=== PATIENT | female | born 1945 | race Caucasian/White ===

== ENCOUNTER → 2016-09-21 | Outpatient (CLI) | payer BC ==
[~2016-09-21] MED LIST: ASCA500 PO; ASPI81TA28 PO; CHOLCAP5 PO; CLC100 PO; DULO60CA44 PO; ESOM20CA PO; GLC/500 PO; IBAN150T PO; LEVO125T4 PO; LIVALO PO; LVNIS30 SQ; OMEG10007 PO; PRMVC TOP; ULT50X PO
== END | disposition home or self-care (01) ==
LOC: C.RDSM 10:11
PROVIDERS: ATTEND Physical Medicine & Rehabilitation Sports Medicine
DX: M25.561 Pain in right knee (principal)

== ENCOUNTER → 2017-01-03 | Outpatient (CLI) | payer BC ==
[~2017-01-03] MED LIST changes: -LEVO125T4 PO; +LEVO125T5 PO
--- NOTE | 2017-01-03 11:46 | DIAGNOSTIC IMAGING REPORT ---
RIGHT KNEE MRI HISTORY: RIGHT KNEE PAIN COMPARISON STUDY: Right knee 09/21/2016. TECHNIQUE: Multiplanar multisequence MRI of the right knee was performed according to standard department protocol without the use of contrast. FINDINGS: Menisci: The lateral meniscus is intact. Oblique tear at the junction of the body and posterior horn of the medial meniscus extending into the posterior horn. Ligaments: The anterior and posterior cruciate ligaments are intact. The medial and lateral collateral ligaments are intact. Tiny cyst deep to the MCL consistent with an MCL bursitis. Mild edema surrounding the MCL. Extensor mechanism: The quadriceps tendon and patellar ligament are intact. Articular cartilage and bone: No fracture or dislocation. Tricompartmental marginal osteophytes. Full-thickness cartilage loss seen within the medial patellar facet and median ridge of the patella. There is mild to moderate cartilage thinning within the lateral patellar facet. Full-thickness cartilage loss seen within the central weightbearing portion of the medial femoral condyle. Mild post thinning within the lateral compartment of the knee. Joint effusion: Moderate. Soft tissues: Small multiloculated cyst medial to the proximal tibia consistent with a semimembranosus-tibial collateral bursitis. IMPRESSION: 1. Medial meniscus tears as described above. 2. Moderate joint effusion. 3. Tiny cyst deep to the MCL consistent with an MCL bursitis. There is also small cystic focus medial to the proximal tibia consistent with a semimembranosus-tibial collateral bursitis. 4. Tricompartmental osteoarthritis as described above. Electronically signed by: Ran Quezada M.D. 01/03/2017 11:44 AM Dictated Date/Time: 01/03/2017 11:37 AM
== END | disposition home or self-care (01) ==
LOC: C.MRI 10:13
PROVIDERS: ATTEND Physical Medicine & Rehabilitation Sports Medicine
DX: Z96.652 Presence of left artificial knee joint (principal); S83.241A Other tear of medial meniscus, current injury, right knee, initial encounter; M25.461 Effusion, right knee; M17.11 Unilateral primary osteoarthritis, right knee; R93.7 Abnormal findings on diagnostic imaging of other parts of musculoskeletal system

== ENCOUNTER → 2017-03-03 | Day surgery (SDC) | payer BC ==
[2017-02-02 09:21] VITALS: Ht 158.8 cm; Wt 65.0 kg
[~2017-03-03] VITALS: Ht 158.8 cm; Wt 65.0 kg
[~2017-03-03] MED LIST changes: +ATROPINE SULFATE 0.1 MG/ML 5ML SYR IV PRN; +CEFAZOLIN 1000MG IV PUSH 5 ML IV SCH; -CLC100 PO; +DEXAMETHASONE SOD INJ 4 MG/ML VIAL ONE; +EpHEDrine SULFATE INJ 50 MG/ML AMP IV PRN; +FENTANYL CITRATE INJ 50 MCG/1 ML 2 ML VIAL IV PRN; +FENTANYL CITRATE INJ 50 MCG/1 ML 2 ML VIAL ONE; +KETOROLAC TROMETHAMINE 30 MG/ML VIAL ONE; +LACTATED RINGER'S 1000ML 1,000 ML IV SCH; +LIDOCAINE HCL 2% 2 ML VIAL (20MG/ML) ONE; +LIDOCAINE/EPINEPHRINE 1% 20 ML VIAL ONE; -LVNIS30 SQ; +MIDAZOLAM HCL 1 MG/ML 2ML VIAL ONE; +MoRPHine SULFATE 2 MG/ML CARP IV PRN; +MoRPHine SULFATE 4 MG/ML 1 ML CARP\\VIAL IV PRN; +ONDANSETRON INJ 2 MG/ML 2 ML VIAL IV PRN; +ONDANSETRON INJ 2 MG/ML 2 ML VIAL ONE; +OXYCODONE/ACETAMINOPHEN 5-325 TAB PO PRN; +PROPOFOL IV EMULSION 10 MG/ML 20 ML VIAL IV ONE; +SODIUM CHLORIDE 0.9% 1000ML 1,000 ML IV SCH; -ULT50X PO
--- NOTE | 2017-03-03 06:48 | History & Physical Bridge Note ---
H&P Re-Evaluation Bridge Note: I have examined the patient, reviewed the History & Physical and in the interval since the performance of the History & Physical I have noted the following changes of clinical significance: No changes noted
--- NOTE | 2017-03-03 08:13 | Discharge Instructions-SurgCtr ---
Discharge Instructions Date of Service Mar 03, 2017. Visit Reason for Visit: Right Knee Medial Meniscus Tear Discharge Discharge Diagnosis / Problem: Right knee osteoarthritis with medial menicus tear Discharge Goals Goal(s): Decrease discomfort, Improve function, Increase independence Medications Stopped Medications Name(s): METFORMINSTOPPED.[id number]/28 Restart Stopped Medication(s): metformin Start Aspirin 325 mg daily this evening Activity Recommendations Activity Limitations: per Instructions/Follow-up section Exercise/Sports Limitations: none Shower/Bathe: may shower/bathe in 3 days Driving or Machine Use: no driving until instucted by surgeon Anesthesia . Post Anesthesia Instructions: If you have had General Anesthesia or IV Sedation: * Do not drive today. * Resume driving when surgeon permits. * Do not make important decisions or sign legal documents today. * Call surgeon for: 1. Temperature elevations greater than 101 degrees F. 2. Uncontrollable pain. 3. Excessive bleeding. 4. Persistent nausea and vomiting. 5. Medication intolerance (nausea, vomiting or rash). * For nausea and vomiting use only clear liquids such as: tea, soda, bouillon until nausea subsides, then gradually increase diet as tolerated. * If you have any concerns or questions, call your surgeon's office. If physician is unavailable and it is an emergency, call 911 or go to the nearest emergency room. . Diet Recommendations Home Diet: resume previous diet Procedures Procedures Performed: Right knee arthroscopy with partial medial menisectomy Pending Studies Studies pending at discharge: no Medical Emergencies . Who to Call and When: Medical Emergencies: If at any time you feel your situation is an emergency, please call 911 immediately. . Non-Emergent Contact Non-Emergency issues call your: Primary Care Provider Call Non-Emergent contact if: you have a fever, temperature is above 101, your pain is not controlled, your pain is worsening, wound has increased drainage, wound has increased redness . . "Provider Documentation" section prepared by Bharat Ulrich. . [place] Drug Monitoring Program Search Results: no issues identified
--- NOTE | 2017-03-03 09:44 | [facility] Post Operative Brief Note ---
Immediate Operative Summary Operative Date Mar 03, 2017. Pre-Operative Diagnosis Right knee medial meniscus tear, chondrosis Post-Operative Diagnosis Same as pre-op Procedure(s) Performed Right Knee Arthroscopy Partial Medial Meniscectomy and Chondroplasty Surgeon Proposal Specialist Surgeon(s) Estimated Blood Loss 5ml Findings chondrosis patella lateral femoral condyle and medial compartment Specimens none Anesthesia LMA Complication(s) None Disposition Recovery Room / PACU
[2017-03-03 10:53] VITALS: TEMP 37.1
--- NOTE | 2017-03-03 11:01 | OPERATIVE REPORT ---
DATE OF OPERATION: 03/03/2017 PREOPERATIVE DIAGNOSES: Right knee medial meniscus tear and chondrosis. POSTOPERATIVE DIAGNOSES: Complex tear of the medial meniscus of the right knee, chondromalacia of the patella, trochlea, lateral condyle, medial femoral condyle, and tibial plateau. PROCEDURES: Right knee arthroscopy, partial medial meniscectomy and chondroplasty of the patella, lateral condyle, trochlea, medial femoral condyle, and tibial plateau. SURGEON: Dr. Darinel Salinas. HRIS DEVELOPER: Bharat Ulrich, fellow. No PA available. ANESTHESIA: Laryngeal mask. INDICATIONS FOR PROCEDURE: The patient is a 71-year-old female who has right knee pain refractory to nonsurgical methods of management. She does have some mild arthritis in the knee along with a complex tear of the meniscus. After discussion of her treatment options, she elected to proceed with operative intervention after failure of conservative treatment methods. PROCEDURE IN DETAIL: Informed consent was obtained. The patient was identified as Naina Duran. She identified the operative site as the right knee. I marked it with my initials. A preoperative surgical timeout was performed. A preop dose of IV antibiotics was given. She was taken to the operating room, positioned supine on the operating room table and a laryngeal mask anesthetic was administered. She was positioned supine. A lateral post used for stressing the knee. The leg was prepped and draped in usual sterile fashion. No tourniquet was utilized. DVT prophylaxis intraoperatively with foot pumps postoperatively with early mobility and aspirin. The exam under anesthesia revealed a moderate right knee effusion, a trace bit of varus alignment, range of motion from 0-130 degrees of flexion. Cruciate and collateral stability was intact; 1% lidocaine with epinephrine was injected into the knee joint, fat pad and portal sites preoperatively. The procedure began by establishing an inferolateral viewing portal, a superolateral outflow portal, and an inferomedial working portal. Diagnostic arthroscopy was performed. There was some generalized synovitis throughout the knee, which was debrided as encountered. There was some chondral debris, mostly adhered to the synovium present throughout the knee, but no notable substantial loose bodies. There was grade 1 and 2 and perhaps some grade 3 chondrosis of the patella. This was diffusely more towards the distal and medial facet, chondroplasty performed. There were grade 1 and 2 changes diffusely about the trochlea, which was also debrided. The medial and lateral gutters were unremarkable except for the presence of small osteophytes. The lateral compartment showed grade 1 softening on the lateral tibial spine, which was debrided with a shaver. The meniscus was intact and stable to probing. I could not gain access to the posterolateral compartment. The femoral condyle was normal except for an area of grade 2 and 3 chondrosis, 1 cm in diameter weightbearing area. There were numerous unstable cartilaginous flaps, which were debrided with perhaps a small area several millimeters in size where there was essentially no cartilage. The retropatellar fat pad was resected. The cruciate ligaments were normal in appearance. The medial compartment showed an area on the anterior tibial plateau, where there was no cartilage. This was 0.5 x 1 cm. The anterior horn of the meniscus was normal. There was a complex tear of the body and posterior horn. There was a fragment of meniscus flipped up into the back of the knee. Basket forceps and a shaver were utilized to debride this meniscus back to a stable, balanced and contoured rim. The MCL was perforated to improve visualization in a percutaneous fashion. There was diffuse grade 2 and 3 chondrosis of the femoral condyle over the entire weightbearing area, which was debrided with the shaver. The posteromedial compartment showed some evidence of the meniscus tear, but no unstable fragments. There was a synovialized loose body posteromedially, which I left in situ. The shaver was run through the knee to crop picker loose debris. The portals were closed with 4-0 nylon. Perhaps, half of the back of the meniscus was removed. The leg was cleaned with wet and dry sponges. A soft sterile dressing was applied along with a DARLING hose. She was awakened from anesthesia without difficulty and taken to the recovery room in stable condition. There were no specimens or complications. Counts were correct at the end of case. Blood loss was minimal. At the conclusion of the operation, I spoke to patient's and informed him of my findings. Detailed postoperative instructions were given. She will be rehabilitated according to the arthroscopic partial meniscectomy protocol. She may have early weightbearing. She will start her aspirin tonight. She will begin early next week for PT. She may weightbear as tolerated. I attest to the content of the Intraoperative Record and any orders documented therein. Any exception s are noted below.
[2017-03-03 11:25] VITALS: O2SAT 98
[2017-03-03 11:42] VITALS: BP 173/81; PULSE 82
--- NOTE | 2017-03-03 11:44 | Anesthesia Progress Nt - [facility] ---
Anesthesia Post Op Note Date & Time Mar 03, 2017 at 11:44 Vital Signs Pain Intensity: 2 Vital Signs Past 12 Hours Date Time Temp Pulse Resp B/P (MAP) Pulse Ox O2 Delivery O2 Flow Rate FiO2 03/03/17 11:42 82 173/81 (111) 03/03/17 11:25 82 16 175/83 (113) 98 Room Air 03/03/17 10:53 37.1 90 16 178/80 (112) 94 Room Air 03/03/17 10:51 83 15 95 03/03/17 10:51 85 15 03/03/17 10:50 165/74 03/03/17 10:49 151/93 03/03/17 10:46 84 20 95 03/03/17 10:46 83 20 03/03/17 10:45 182/71 03/03/17 10:43 86 20 95 03/03/17 10:43 86 20 03/03/17 10:42 36.6 85 16 182/71 95 Room Air 03/03/17 10:40 163/75 03/03/17 10:38 87 14 93 03/03/17 10:38 86 14 03/03/17 10:36 172/64 03/03/17 10:35 181/67 03/03/17 10:33 86 16 03/03/17 10:33 86 16 96 03/03/17 10:30 159/85 03/03/17 10:28 84 12 03/03/17 10:28 84 12 100 03/03/17 10:25 174/86 03/03/17 10:23 85 15 180/79 100 03/03/17 10:23 85 15 03/03/17 10:20 186/64 03/03/17 10:18 84 15 100 03/03/17 10:18 84 15 03/03/17 10:15 176/72 03/03/17 10:13 81 14 99 03/03/17 10:13 81 14 03/03/17 10:10 180/93 03/03/17 10:10 188/80 03/03/17 10:08 83 14 98 03/03/17 10:08 84 14 03/03/17 10:06 184/67 03/03/17 10:03 85 14 99 03/03/17 10:03 85 14 03/03/17 10:02 159/77 1/11/18 10:00 199/80 03/03/17 09:59 182/92 03/03/17 09:58 37.1 78 16 159/77 98 Mask 6 03/03/17 09:58 87 17 190/112 96 03/03/17 09:58 88 17 03/03/17 07:09 36.6 84 16 146/82 (103) 98 Room Air Notes Mental Status: alert / awake / arousable, participated in evaluation Pt Amnestic to Procedure: Yes Nausea / Vomiting: adequately controlled Pain: adequately controlled Airway Patency, RR, SpO2: stable & adequate BP & HR: stable & adequate Hydration State: stable & adequate Anesthetic Complications: no major complications apparent
== END | disposition home or self-care (01) ==
LOC: X.SURG 06:42
PROVIDERS: ATTEND Physical Medicine & Rehabilitation Sports Medicine
DX: S83.231A Complex tear of medial meniscus, current injury, right knee, initial encounter (principal); M22.41 Chondromalacia patellae, right knee; M94.261 Chondromalacia, right knee; M17.11 Unilateral primary osteoarthritis, right knee; X50.0XXA Overexertion from strenuous movement or load, initial encounter; Y92.832 Beach as the place of occurrence of the external cause; E11.9 Type 2 diabetes mellitus without complications; E03.9 Hypothyroidism, unspecified; E78.5 Hyperlipidemia, unspecified; K21.9 Gastro-esophageal reflux disease without esophagitis; N32.81 Overactive bladder; M81.0 Age-related osteoporosis without current pathological fracture; Z96.652 Presence of left artificial knee joint; Z79.84 Long term (current) use of oral hypoglycemic drugs; Z79.899 Other long term (current) drug therapy

== ENCOUNTER 2018-12-12 06:03 | Inpatient (IN) ==
--- NOTE | 2018-11-09 15:15 | PAT Medication Instructions ---
Medication Instructions Date of Service November 09, 2018 Home Medications Levothyroxine 1 dose PO QAM ascorbic acid (vitamin C) [Vitamin C] 500 mg PO DAILY aspirin [Aspir-81] 81 mg PO DAILY calcium carbonate [Calcium 600] 600 mg PO DAILY celecoxib [Celebrex] 200 mg PO BID cholecalciferol (vitamin D3) [Vitamin D3] 5,000 unit PO 3XWK conjugated estrogens [Premarin] 0.625 mg VAGINAL 3XWK duloxetine [Cymbalta] 60 mg PO QPM esomeprazole magnesium [Nexium] 20 mg PO QAM ibandronate [Boniva] 150 mg PO MONTHLY losartan 100 mg PO QAM metformin 500 mg PO BID omega 7-scg-twk-fish oil [Fish Oil] 1 cap PO DAILY ASK your surgeon for instructions celecoxib [Celebrex] 200 mg PO BID ASK your prescriber and surgeon conjugated estrogens [Premarin] 0.625 mg VAGINAL 3XWK ibandronate [Boniva] 150 mg PO MONTHLY STOP taking 2 weeks before surgery (or as soon as possible if surgery is within 2 weeks) omega 6-mat-pdv-fish oil [Fish Oil] 1 cap PO DAILY DO NOT take the morning of surgery ascorbic acid (vitamin C) [Vitamin C] 500 mg PO DAILY calcium carbonate [Calcium 600] 600 mg PO DAILY cholecalciferol (vitamin D3) [Vitamin D3] 5,000 unit PO 3XWK losartan 100 mg PO QAM metformin 500 mg PO BID Take morning of surgery With a small sip of water, OTHERWISE NOTHING TO EAT OR DRINK AFTER MIDNIGHT: Levothyroxine 1 dose PO QAM aspirin [Aspir-81] 81 mg PO DAILY esomeprazole magnesium [Nexium] 20 mg PO QAM Take evening before surgery duloxetine [Cymbalta] 60 mg PO QPM metformin 500 mg PO BID Other Notes If you have any questions please call us at [phone] or [phone] or [phone] or [phone]
--- NOTE | 2018-11-13 11:36 | Anesthesiology Consultation ---
Date of Service November 13, 2018 Assessment & Plan (1) Encounter for pre-operative examination: - Awaiting review preop testing (labs, EKG, CXR). - Awaiting surgeon-ordered PCP clearance scheduled 11/2018 (Dr. Turner). - Check [facility] AM DOS Chart Review Chart Review: Patient seen in Pre Admission Testing Teaching & Discussion Pre-Anesthesia Teaching/Discussion Notes: Instructed NPO after midnight before surgery,except medications with 15 cc of water. Medication instructions provided according to the PAT guidelines. History Surgery Operation Date: 12/12/18 07:00 Proposed Procedures p Right Total Knee Arthroplasty - Darinel Salinas MD Height/Weight Height: 5 ft 2 in Weight: 67.4 kg Allergies Allergy/AdvReac Type Severity Reaction Status Date / Time sulfamethoxazole AdvReac Severe GASTRITITS Verified 11/06/18 11:46 [From Bactrim] trimethoprim [From Bactrim] AdvReac Severe GASTRITITS Verified 11/06/18 11:46 Medications Home Medications Medication Instructions Recorded Confirmed Last Taken Levothyroxine 1 dose PO QAM 11/06/18 11/06/18 11/06/18 ascorbic acid (vitamin C) [Vitamin 500 mg PO DAILY 11/06/18 11/06/18 Unknown C] aspirin [Aspir-81] 81 mg PO DAILY 11/06/18 11/06/18 Unknown calcium carbonate [Calcium 600] 600 mg PO DAILY 11/06/18 11/06/18 Unknown celecoxib [Celebrex] 200 mg PO BID 11/06/18 11/06/18 11/06/18 cholecalciferol (vitamin D3) 5,000 unit PO 3XWK 11/06/18 11/06/18 Unknown [Vitamin D3] conjugated estrogens [Premarin] 0.625 mg VAGINAL 3XWK 11/06/18 11/06/18 Unknown duloxetine [Cymbalta] 60 mg PO QPM 11/06/18 11/06/18 11/05/18 esomeprazole magnesium [Nexium] 20 mg PO QAM 11/06/18 11/06/18 11/06/18 ibandronate [Boniva] 150 mg PO MONTHLY 11/06/18 11/06/18 Unknown losartan 100 mg PO QAM 11/06/18 11/06/18 11/06/18 metformin 500 mg PO BID 0911/06/18 11/06/18 omega 2-thk-ken-fish oil [Fish Oil] 1 cap PO DAILY 11/06/18 11/06/18 Unknown Past Medical History Medical History Acid reflux controlled History of thyroid storm remote hx years ago s/p influenza- PCP monitoring thyroid levels/levothyroxine dose Hypertension Hypothyroidism Osteoarthritis Osteopenia Type 2 diabetes mellitus NIDDM Exercise / Class Metabolic Activity II 4-5 Yardwork/Stairs/Walk up hill Past Family History Family History Sister Family history of colon cancer Past Surgical History Surgical History History of arthroscopy of right knee Right knee arthroscopy, PMM: 03/03/17: [place] [facility] [place] of colonoscopy History of hysterectomy History of microdiscectomy lumbar History of total left knee replacement Past Anesthesia History No Hx of Anesthesia Complications and No Family Hx of Anesthesia Complications History of PONV No Hx of PONV and No Hx of Motion Sickness Social History Smoking Status: Never smoker Do You Dip or Chew Tobacco: No Hx Alcohol Use: Yes Alcohol type: wine alcohol intake frequency: holidays/special occasions only Hx Substance Use: No substance use type: does not use Review of Systems Reflux controlled. Patient denies chest pain, shortness of breath, dyspnea on exertion, cough, wheezing, palpitations. Physical Exam Vital Signs VITALS BP 134/75 P 73 TEMP 98.7 SP02 97%RA RESP 16 PHYSICAL Full neck and c-spine range of motion. Full TMJ range of motion. TMD 2.5 finger breaths Mallampati Score 3 Dentition: crown to be placed on recent root canal prior to surgery (early 11/2018)- surgeon made aware Lungs: clear throughout to auscultation Cardiac: regular rate and rhythm, no murmurs noted Spine: normal Carotid arteries: negative bruit Extremities: no edema
[2018-11-13 12:56] LABS: Partial Thromboplastin Ratio 0.9
--- NOTE | 2018-11-13 12:58 | XRay Report ---
XR chest Pre-admission PA/Lat CLINICAL HISTORY: Preoperative evaluation. COMPARISON STUDY: Chest radiograph December 03, 2015. FINDINGS: Lung volumes are normal. Lungs are clear. There is no pneumothorax or pleural effusion. Car diac size is normal. Mediastinal contours are normal. There is no evidence for pulmonary edema. IMPRESSION: No acute cardiopulmonary findings. Electronically signed by: Dionicio Powers M.D. 11/13/2018 12:56 PM
[2018-11-13 13:51] LABS: Estimated Average Glucose 143 mg/dl; Hemoglobin A1C 6.6 % (4.5-5.6)
[~2018-12-12 06:03] MED LIST changes: +ACETAMINOPHEN 500 MG TAB PO SCH; -ASCA500 PO; -ASPI81TA28 PO; -ATROPINE SULFATE 0.1 MG/ML 5ML SYR IV PRN; -CEFAZOLIN 1000MG IV PUSH 5 ML IV SCH; +CEFAZOLIN 2000MG 2,000 MG/15 ML SYR IV SCH; -CHOLCAP5 PO; +CeleBREX 200 MG CAP PO SCH; -DEXAMETHASONE SOD INJ 4 MG/ML VIAL ONE; -DULO60CA44 PO; -ESOM20CA PO; -EpHEDrine SULFATE INJ 50 MG/ML AMP IV PRN; -FENTANYL CITRATE INJ 50 MCG/1 ML 2 ML VIAL IV PRN; -FENTANYL CITRATE INJ 50 MCG/1 ML 2 ML VIAL ONE; +GABAPENTIN 300 MG CAP PO SCH; -GLC/500 PO; -IBAN150T PO; -KETOROLAC TROMETHAMINE 30 MG/ML VIAL ONE; -LACTATED RINGER'S 1000ML 1,000 ML IV SCH; -LEVO125T5 PO; -LIDOCAINE HCL 2% 2 ML VIAL (20MG/ML) ONE; -LIDOCAINE/EPINEPHRINE 1% 20 ML VIAL ONE; -LIVALO PO; +LR 500ML BOLUS, THEN 15ML/HR IV SCH; +LR 60ML/HR IV SCH; +METOCLOPRAMIDE HCL 10 MG TABLET PO SCH; -MIDAZOLAM HCL 1 MG/ML 2ML VIAL ONE; -MoRPHine SULFATE 2 MG/ML CARP IV PRN; -MoRPHine SULFATE 4 MG/ML 1 ML CARP\\VIAL IV PRN; -OMEG10007 PO; -ONDANSETRON INJ 2 MG/ML 2 ML VIAL IV PRN; -ONDANSETRON INJ 2 MG/ML 2 ML VIAL ONE; +OXYCODONE HCL 10 MG TABCR (OXYCONTIN) PO SCH; -OXYCODONE/ACETAMINOPHEN 5-325 TAB PO PRN; -PRMVC TOP; -PROPOFOL IV EMULSION 10 MG/ML 20 ML VIAL IV ONE; +ROPIVACAINE 0.5% HCL/PF 150 MG, BUPIVACAINE 0.5% MPF 30 ML, EPINEPHrine 0.15 MG, Ketoro... INFIL SCH; -SODIUM CHLORIDE 0.9% 1000ML 1,000 ML IV SCH; +TRAMADOL HCL 50 MG TABLET PO SCH; +TRANEXAMIC ACID 1,000 MG **IV Pre-op IV SCH; +cloNIDine HCL 0.1 MG/24 HR TRANSDERM SYS TD SCH
[2018-12-12] MEDS ORDERED: BUPIVACAINE 0.25% 30 ML VIAL ONE (06:27)
[2018-12-12] MEDS ORDERED: BUPIVACAINE 0.5 % 5 MG/1 ML PF 10ML VIAL ONE (06:27)
[2018-12-12] MEDS ORDERED: TRANEXAMIC ACID 1,000 MG **IV Intra-op IV SCH (06:30)
--- NOTE | 2018-12-12 06:45 | History & Physical Bridge Note ---
Date of Service December 12, 2018 History & Physical Bridge Note I have examined the patient, reviewed the History & Physical and in the interval since the performance of the History & Physical I have noted the following changes of clinical significance: no changes noted
[2018-12-12] MEDS ORDERED: LIDOCAINE HCL 2% 2 ML VIAL/AMP(20MG/ML) INFIL ONE (06:47)
[2018-12-12] MEDS ORDERED: PROPOFOL IV EMULSION 10 MG/ML 20 ML VIAL IV ONE ×2 (06:47→10:01)
[2018-12-12] MEDS ORDERED: ONDANSETRON INJ 2 MG/ML 2 ML VIAL ONE (06:47)
[2018-12-12] MEDS ORDERED: MIDAZOLAM HCL 1 MG/ML 2ML VIAL ONE ×2 (06:48→09:03)
[2018-12-12] MEDS ORDERED: fentaNYL citrate 100 MCG/2 ML VIAL ONE (06:48)
[2018-12-12] MEDS ORDERED: FAMOTIDINE 20 MG TAB ONE (07:09)
[2018-12-12] MEDS ORDERED: BACITRACIN INJ 50,000 UNIT VIAL ONE (07:12)
[2018-12-12] MEDS ORDERED: ORTHO JOINT ANESTHETIC ONE (07:12)
[2018-12-12] MEDS ORDERED: VANCOMYCIN HCL 1000MG/20ML VIAL ONE (07:28)
[2018-12-12] MEDS ORDERED: ePHEDrine sulfate 50 MG/ML AMP IV PRN (08:23)
[2018-12-12] MEDS ORDERED: ONDANSETRON INJ 2 MG/ML 2 ML VIAL IV PRN ×2 (08:23→12:27)
[2018-12-12] MEDS ORDERED: ATROPINE SULFATE 0.1 MG/ML 10ML SYR IV PRN (08:23)
[2018-12-12] MEDS ORDERED: fentaNYL citrate 100 MCG/2 ML VIAL IV PRN (08:23)
--- NOTE | 2018-12-12 11:15 | Operative Report ---
Post Operative Report Pre & Post Diagnosis Operation Date: 12/12/18 08:20 Pre-Op Diagnosis: Right Knee Osteoarthritis Post-Op Diagnosis: Right Knee Osteoarthritis I identified the patient and participated in the time-out.: Yes Procedure Operation Date: 12/12/18 08:20 Actual Procedures p Right Total Knee Arthroplasty(Right) - Darinel Salinas MD Surgeon Darinel Salinas MD Hand Stapler Wanda Osuna Estimated Blood Loss 5 Findings Consistent with Post-Op Diagnosis Specimens Bone and soft tissue Drains None Anesthesia Type MAC Spinal Regional Complications none Disposition Accompanied Patient To Recovery: No Disposition: Recovery Room Indications Patient 72 years old. She has end-stage arthritis of her right knee. This is refractory to nonsurgical methods of management and she is elected to proceed with knee replacement. She is status post a successful replacement of her left knee. Description of Procedure Informed consent obtained. Patient identified. She identified the operative site which I marked with my initials. Preop surgical timeout was performed and a preop dose of IV antibiotics was given. She was positioned supine on the OR table with a bump under her right hip and a padded post under her right calf. A tourniquet was applied to the right thigh and the leg was then prepped and draped in usual sterile fashion. DVT prophylaxis with foot pumps and postoperatively Lovenox and early mobility. The exam under anesthesia revealed range of motion 0/2/130. She had a fixed varus deformity. Limb exsanguinated with the Esmarch. Tourniquet inflated 250 mmHg. Midline longitudinal incision was made followed by medial parapatellar arthrotomy. There was scarring from prior surgery which was excised as encountered in the lateral gutter suprapatellar pouch and retropatellar fat pad. The patella was scarred in and the retropatellar fat pad was resected and the synovial reflection in the lateral gutter was released. Soft tissue on the anterior aspect the distal femur was excised and an extensile medial release was performed off the tibia. The patella was everted and marginal osteophytes were removed. There were grade 3 and 4 changes diffusely at the patella. The knee was flexed and the cruciate ligaments were resected. The tibia was sucked subluxated and a marine pilot hole was drilled into the proximal tibia just in front of the lateral tibial spine. Intramedullary alignment guide was inserted and the 0 degrees slope cutting block was set to cut 8 mm off of the high side corresponding to about 4 mm medially. [place] was perfect. The extra medullary alignment elisabeth was utilized to check slope and alignment which bisected the ankle joint and intersecting the second ray being in line with the medial third of the tibial tubercle which was previously marked. This cut was made and the tibia was sized to a 2.5. A marine pilot hole was drilled into the distal femur followed by insertion of the distal femoral cutting guide set at 12 mm thickness 6 degrees valgus based upon preop templating and prior surgery. This cut was made and the extension gap was a slightly asymmetric but tight 8. I did more medial releasing which corrected the asymmetry however it remained tight. I then went back and resected 2 more millimeters off of the tibia and downsized to a 2. This made us have a symmetric extension gap. The trans-epicondylar axis was marked out. The distal femoral sizing guide was applied and sized with 2.5. External rotation holes were drilled which approximated the epicondylar axis. The size 2.5 anterior down cutting block was applied. Collateral ligaments protected and the cuts were made. Box cutting guide was applied and lateralized box cut made. The flexion gap was an asymmetric 8 medially 10 lateral. I then went ahead and resect the uncapped medial bone after doing some more medial and posterior medial releases to no avail. Resecting the uncapped medial bone after shifting the tibial component laterally resulted in a symmetric flexion gap of 10 mm. This effectively lengthens the MCL. The femoral trial was applied. The keel an d posterior prepared for the tibia and trialing was performed showing full extension trace LCL laxity in the position and no laxity at 90. The patella was everted and measured to 19. The guide was set to preserve 13 mm of bone and the cut was made preserving 13. The 32 mm paddle was applied and aligned and the lug holes drilled. The patella was distal lysed and medialized. Patella tracked fine with a no hands technique. Some cartilage on the lateral surface of the patella was removed to improve for cement penetration. Drill holes were made into the patella and proximal tibia. The canals were plugged and copious lavage to prepare the bony surfaces was performed and this was preceded by Betadine lavage. Ortho joint mix was injected into the back of the knee. 4 g of vancomycin were cauterized. They were mixed in with the cement powder thoroughly. The cement was then mixed 4-minute 10 and while in a doughy state the components were cemented in place. Femur tibia patella. The knee was helpful extension until the cement hardened. Tourniquet let down at 90 minutes and meticulous hemostasis was performed. There was some bleeding from the proximal tibia bone holes which was plugged with bone wax. Otherwise meticulous hemostasis with electrocautery was performed. Soft tissues were kept moist throughout the procedure and irrigation with saline again was performed. The a forementioned laxity profile held true and the final polyethylene insert was inserted. Prior to inserting the components small posterior osteophytes were removed in the back the knee was explored. After cementing several small pieces of cement in the back of the knee were removed. The extensor mechanism was closed with interrupted #2 FiberWire above the equator the patella and running and interrupted #1 Vicryl below. The skin was closed in layers with 0 and 2-0 Vicryl followed by ewelina. A soft sterile dressing was applied Xeroform 4 x 4's ABD full-length João wrap with knee immobilizer. Patient was then awakened from anesthesia without difficulty and taken to the recovery room in stable condition. There were no complications. Blood loss 5 cc. TXA was given before and after the case. Resected bone and soft tissue was sent for specimen. The lateral compartment looked pretty normal with an intact meniscus. The medial meniscus was surgically partially deficient and there were grade 4 changes involving the medial tibia and femur with large osteophytes which were removed including underneath the MCL. Counts were correct. At the conclusion the operation spoke patient's family informed of my findings. Postoperative instructions were given. Composite patellar thickness was 20 mm. Largo assisted flexion was 125. Knee was fully straight and neutrally aligned. Components inserted with a J[employer] PFC Sigma rotating platform knee. A size 32 over the patella size 10 mm thick posterior stabilized polyethylene which was inserted at the end of the case. A size 2 5 right posterior stabilized femur and a size 2 mobile-bearing keel tibial tray. I attest to the content of the Intraoperative Record and any orders documented therein. Any exceptions are noted below.
--- NOTE | 2018-12-12 11:25 | Operative Report ---
Post Operative Report Pre & Post Diagnosis Operation Date: 12/12/18 08:20 Pre-Op Diagnosis: Right Knee Osteoarthritis Post-Op Diagnosis: Right Knee Osteoarthritis I identified the patient and participated in the time-out.: Yes Procedure Operation Date: 12/12/18 08:20 Actual Procedures p Right Total Knee Arthroplasty(Right) - Darinel Salinas MD Surgeon Darinel Salinas M.D. Audio Visual Facilities Engineer Wanda Osuna PA-C Estimated Blood Loss 5 Findings Consistent with Post-Op Diagnosis Specimens bone and soft tissue Anesthesia Type MAC Spinal Regional Complications none Description of Procedure Patient was taken to the operating room, placed under spinal anesthesia, with peripheral nerve block. Time out performed, prepped and draped in routine sterile fashion. I was present during the entire case and assisted with positioning, prepping, draping, exposure, retraction, implantation of the hardware, closure and dressings. Please see Dr. Salinas's operative report for further detail. Patient was awakened and taken to the recovery room in stable condition. I attest to the content of the Intraoperative Record and any orders documented therein. Any exceptions are noted below.
--- NOTE | 2018-12-12 11:49 | XRay Report ---
XR knee RT 2V routine CLINICAL HISTORY: 72 years-old Female presenting with Surgical Post Op. TECHNIQUE: Frontal and crosstable lateral views of the right knee were obtained. COMPARISON: 09/28/2018. FINDINGS: Postsurgical changes of total right knee arthroplasty with patellar resurfacing new from prior. Expec liudmila intra-articular and soft tissue emphysema. Overlying skin ewelina. No periprosthetic fracture or radiolucency. No malalignment. IMPRESSION: Expected postsurgical appearance status post total right knee arthroplasty with patellar resurfacing. Electronically signed by: Darinel Mi M.D. 12/12/2018 11:48 AM
--- NOTE | 2018-12-12 12:02 | Anesthesiology Progress Note ---
Date of Service December 12, 2018 Anesthesia Post Procedure Vital Signs Vital Signs: Temp Pulse Pulse Resp BP Pulse Ox 12/12/18 11:50 36.4 C L 87 16 144/59 H 94 12/12/18 11:40 81 16 143/65 H 94 12/12/18 11:30 83 14 147/65 H 95 12/12/18 11:20 83 14 141/79 H 94 12/12/18 11:11 36.0 C L 92 H 14 154/85 H 96 12/12/18 06:47 36.6 C 78 18 149/49 H 98 Transfer of Care Handoff Completed per policy Notes Mental Status: alert / awake / arousable and participated in evaluation Nausea / Vomiting: adequately controlled Pain: adequately controlled Airway Patency, RR, SpO2: stable & adequate BP & HR: stable & adequate Hydration State: stable & adequate Neuraxial Anesthesia: was administered and sensory block is resolving Anesthetic Complications: no major complications apparent and Pt Satisfied with anesthetic care
[2018-12-12] MEDS ORDERED: METOCLOPRAMIDE HCL INJ 5 MG/ML 2 ML VIAL IV PRN (12:27)
[2018-12-12] MEDS ORDERED: TRAMADOL HCL 50 MG TABLET PO PRN (12:27)
[2018-12-12] MEDS ORDERED: bisacodyL 10 MG SUPP PR PRN (12:27)
[2018-12-12] MEDS ORDERED: OXYCODONE HCL IR 5 MG TAB (IMMEDIATE RELEASE) PO PRN (12:27)
[2018-12-12] MEDS ORDERED: MAGNESIUM HYDROXIDE SUSP 30 ML UDC PO PRN (12:27)
[2018-12-12] MEDS ORDERED: NALOXONE HCL 0.4 MG/1 ML VIAL/CARP IV PRN (12:27)
[2018-12-12] MEDS ORDERED: HYDROmorphone INJ 0.5 MG/0.5 ML SYR IV PRN (12:27)
[2018-12-12] MEDS ORDERED: HydrALAZINE 10 MG TAB PO PRN (12:27)
[2018-12-12] MEDS: SODIUM CHLORIDE 0.9% 1000ML 1,000 ML IV SCH ×2 (13:26→23:34)
[2018-12-12] MEDS: ACETAMINOPHEN 500 MG TAB PO SCH ×2 (13:28→21:52)
[2018-12-12] MEDS ORDERED: DEXTROSE 50% 50 ML SYRINGE IV PRN (13:30)
[2018-12-12] MEDS ORDERED: GLUCOSE 10 TABS/TUBE PO PRN (13:30)
[2018-12-12] MEDS ORDERED: GLUCOSE 40% GEL 15 GM TUBE PO PRN (13:30)
[2018-12-12] MEDS ORDERED: CARBOHYDRATES FOR HYPOGLYCEMIA PO PRN (13:30)
[2018-12-12] MEDS ORDERED: GLUCAGON FOR INJ 1 MG VIAL SQ PRN (13:30)
[2018-12-12] MEDS ORDERED: PHARMACY GLYCEMIC MGMT CONSULT PRN (13:32)
--- NOTE | 2018-12-12 13:39 | Pharmacy Report ---
Glycemic Control Consultation - Date of Service December 12, 2018 - Scope Scope: Glycemic Pharmacist consulted by VIVEK Sun on 12/12 for glycemic control and to write orders per [facility] inpatient glycemic control protocol - Objective Weight: 66.86 kg Accuchecks BSG (last 24hrs): 12/12/18 12/12/18 12/12/18 06:33 11:17 12:48 POC Glucose 119 H 110 H 99 HbA1c: Hemoglobin A1c 6.6 % (4.5-5.6) H 11/13/18 11:58 - Recent Pertinent Medications Outpatient Anti-diabetic Regimen: * Metformin 500 mg BID * A1c = 6.6 % 11/13/18 Risk Factors for Insulin Resistance: * Steroids: Decadron 8 mg po to be given POD 1 in the AM; NO perioperative steroids administered today * Recent Surgery: POD 0 s/p R TKA * Diet: T2DM - Assessment & Plan Assessment & Plan: ASSESSMENT: * 72 y/o female admitted s/p R TKA. She has a history of well controlled T2DM. * Pt is maintained on oral antidiabetic agents as an outpatient * Oral agents are not recommended for inpatient use d/t drug interactions, changing PO intake, and difficulty titrating for acute hyper/hypoglycemia. ADA recommends re-initiating outpatient oral agents 1-2 days prior to discharge if/when appropriate if they were held on admission. * Will hold oral agents for admission and utilize SQ basal bolus insulin regimen which is the recommended regimen for inpatient glycemic control. * Will initiate weight based insulin dosing for insulin frandy patient and titrate based on BSG trends * Will hold off on basal insulin for now since fasting BSG today = 119 mg/dL PLAN FOR INPATIENT GLYCEMIC CONTROL: * Holding outpatient oral diabetes medications - can resume 1-2 days prior to discharge * Basal insulin * None at this time; will need to reassess tomorrow but would recommend either Lantus or NPH 20 units (~0.3 units/kg) x 1 in the AM to cover one time dose of Decadron * Bolus insulin * NovoLog per scale ACHS or Q6hrs while NPO * Goal Range: Low 100 mg/dL - High 140 mg/dL * Correction Factor: 35 mg/dL/unit -> tighten to 25 mg/dL/unit in AM since Decadron will be on board * Nutritional / Prandial insulin per carb ratio of 1 unit per 12 grams CHO consumed -> tighten to 1 unit per 8 gm CHO in AM since Decadron will be on board Discharge Recommendations: * A1c = 6.6% on 11/13/18 * Goal A1c < 7% for age/comorbidities * Recommend to continue metformin on discharge Thank you.
--- NOTE | 2018-12-12 14:52 | Orthopedic Progress Note ---
Date of Service December 12, 2018 Assessment & Plan (1) Arthritis of left knee: POD 0 - right total knee arthroplasty May be out of bed, WBAT RLE with assistance of knee immobilizer and walker Lovenox to start this evening for DVT prophylaxis. PT/OT to start tomorrow. Regular home meds ordered Keep dressings clean, dry and intact, reinforce as needed. Pain medication PRN as prescribed. Ice to right knee Bedside exercises as instructed Dr. Salinas present for today's visit/exam Will re-eval in AM Plan for discharge home tomorrow if safe, pain controlled and medically stable. Case management consulted for disposition needs. Glycemic consult placed. Present on Admission?: Yes Subjective Patient doing well, no complaints of pain right knee right now. Denies numbness or tingling. Resting in bed comfortably. Tolerating regular diet, no chest pain or shortness of breath Physical Exam Physical Exam: Right knee dressings intact. Unable to actively dorsiflex right foot, 4/5 weakness with plantarflexion as expected with spinal anesthesia. Sensation seems normal. Dorsalis pedis pulse 1+, foot warm. Results & Data Vital Signs (Past 12 Hours) Vital Signs Temp Pulse Pulse Pulse Resp BP Pulse Ox 12/12/18 14:20 36.4 C L 97 H 16 154/72 H 93 12/12/18 13:24 36.6 C 88 14 144/68 H 93 12/12/18 12:51 36.4 C L 81 16 131/77 94 12/12/18 12:00 89 16 138/65 94 12/12/18 11:50 36.4 C L 87 16 144/59 H 94 12/12/18 11:40 81 16 143/65 H 94 12/12/18 11:30 83 14 147/65 H 95 12/12/18 11:20 83 14 141/79 H 94 12/12/18 11:11 36.0 C L 92 H 14 154/85 H 96 12/12/18 06:47 36.6 C 78 18 149/49 H 98 Diagnostic Findings XR knee RT 2V routine CLINICAL HISTORY: 72 years-old Female presenting with Surgical Post Op. TECHNIQUE: Frontal and crosstable lateral views of the right knee were obtained. COMPARISON: 09/28/2018. FINDINGS: Postsurgical changes of total right knee arthroplasty with patellar resurfacing new from prior. Expected intra-articular and soft tissue emphysema. Overlying skin ewelina. No periprosthetic fracture or radiolucency. No malalignment. IMPRESSION: Expected postsurgical appearance status post total right knee arthroplasty with patellar resurfacing.
[2018-12-12] MEDS: CHECK CLONIDINE PATCH PLACEMENT SCH ×2 (17:00→23:37)
[2018-12-12] MEDS: CEFAZOLIN 1000MG 1,000 MG/7.5 ML SYR IV SCH ×2 (17:00→23:35)
[2018-12-12] MEDS: KETOROLAC TROMETHAMINE 15 MG/ML VIAL IV SCH ×2 (17:35→23:37)
[2018-12-12] MEDS: INSULIN ASPART 100 UNITS/ML 3 ML PEN SC SCH ×2 (18:20→20:53)
[2018-12-12] MEDS: DOCUSATE SODIUM 100 MG CAP PO SCH (20:48)
[2018-12-12] MEDS ORDERED: SENNA 8.6 MG TAB PO SCH (21:00)
[2018-12-12] MEDS ORDERED: ENOXAPARIN INJ 30 MG/0.3 ML SYR SQ SCH (23:15)
[2018-12-13] MEDS: ACETAMINOPHEN 500 MG TAB PO SCH ×2 (05:39→13:19)
[2018-12-13] MEDS: KETOROLAC TROMETHAMINE 15 MG/ML VIAL IV SCH ×2 (05:41→12:19)
[2018-12-13 06:10] LABS: Hematocrit (blood only) 27.3 % (37-47); Hemoglobin 8.9 g/dL (12.0-16.0); Mean Corpuscular Hemoglobin 27.5 pg (25-34); Mean Corpuscular Hgb Conc 32.6 g/dL (32-36); Mean Corpuscular Volume 84.3 fL (80-100); Mean Platelet Volume 8.8 fL (7.4-10.4); Platelet Count 204 K/uL (130-400); RDW Coefficient of Variation 14.7 % (11.5-14.5); RDW Standard Deviation 45.7 fL (36.4-46.3); Red Blood Count 3.24 M/uL (4.2-5.4); White Blood Count 5.42 K/uL (4.8-10.8)
[2018-12-13] MEDS ORDERED: LEVOTHYROXINE SODIUM 125 MCG TABLET PO SCH (06:30)
[2018-12-13 06:48] LABS: BUN Creatinine Ratio 18.3 (10-20); Calcium 8.2 mg/dl (8.5-10.1); Creatinine Clr Calc Pharmacy 44.1 ml/min; Est GFR (African American) 61.9; Est GFR (Non-African American) 53.4; Potassium 4.7 mmol/L (3.5-5.1)
[2018-12-13 07:37] VITALS: BP 105/58; TEMP 98.2; O2SAT 99
[2018-12-13] MEDS ORDERED: dexAMETHasone 4 MG TAB PO SCH (08:00)
[2018-12-13] MEDS: DOCUSATE SODIUM 100 MG CAP PO SCH (08:15)
[2018-12-13] MEDS: CHECK CLONIDINE PATCH PLACEMENT SCH (08:22)
[2018-12-13] MEDS ORDERED: MULTIVITAMIN TAB PO SCH (09:00)
[2018-12-13] MEDS ORDERED: ASPIRIN 81 MG ECTAB PO SCH (09:00)
[2018-12-13] MEDS ORDERED: CHOLECALCIFEROL 1,000 UNITS TAB PO SCH (09:00)
[2018-12-13] MEDS ORDERED: CALCIUM CARBONATE 1250MG TAB PO SCH (09:00)
[2018-12-13] MEDS ORDERED: LOSARTAN POTASSIUM 50 MG TAB PO SCH (09:00)
[2018-12-13] MEDS ORDERED: ASCORBIC ACID 500 MG TAB PO SCH (09:00)
[2018-12-13] MEDS ORDERED: PANTOprazole 40 MG TAB PO SCH (09:00)
[2018-12-13] MEDS ORDERED: OMEGA-3 (PURIFIED FISH OIL) 1 GM CAP PO SCH (09:00)
[2018-12-13] MEDS: INSULIN ASPART 100 UNITS/ML 3 ML PEN SC SCH ×2 (10:16→13:22)
--- NOTE | 2018-12-13 10:49 | Orthopedic Progress Note ---
Date of Service December 13, 2018 Assessment & Plan (1) S/P total knee arthroplasty: Doing very well. Do PT today. When she is ready for discharge we discussed her disposition and follow-up. She will change her dressing herself and instructions are given. She will do outpatient physical therapy as she did previously. We talked about lab work activity levels follow-up and things to watch out for. Reviewed pain management plan. Present on Admission?: No (2) Arthritis of left knee: Stable Present on Admission?: Yes (3) Acute blood loss anemia: Asymptomatic and requires no treatment at this time. Present on Admission?: No Subjective Did well with PT. Having increased pain. We talked about pain management strategies. Otherwise tolerating a diet without nausea vomiting. No numbness or tingling. Physical Exam Physical Exam: Dorsalis pedis pulse is palpable. Her sensation is normal in the foot and she has today normal ankle and toe plantarflexion and dorsiflexion strength. Her dressing is clean and dry and she is able to do straight leg raise. Results & Data Vital Signs (Past 12 Hours) Vital Signs Temp Pulse Resp BP Pulse Ox 12/13/18 07:36 36.8 C 79 16 105/58 L 99 12/13/18 03:43 36.9 C 83 16 114/48 L 94 12/12/18 23:47 36.6 C 88 16 133/65 92 Laboratory Results 12/13/18 12/13/18 12/13/18 Range/Units 08:09 05:58 05:58 WBC 5.42 (4.8-10.8) K/uL RBC 3.24 L (4.2-5.4) M/uL Hgb 8.9 L (12.0-16.0) g/dL Hct 27.3 L (37-47) % MCV 84.3 (80-100) fL MCH 27.5 (25-34) pg MCHC 32.6 (32-36) g/dL RDW Std Deviation 45.7 (36.4-46.3) fL RDW Coeff of Caleb 14.7 H (11.5-14.5) % Plt Count 204 (130-400) K/uL MPV 8.8 (7.4-10.4) fL Sodium 138 (136-145) mmol/L Potassium 4.7 (3.5-5.1) mmol/L Chloride 105 (98-107) mmol/L Carbon Dioxide 29 (21-32) mmol/L Anion Gap 4.0 (3-11) BUN 19 H (7-18) mg/dl Creatinine 1.05 (0.6-1.2) mg/dl Est Cr Clr Drug Dosing 44.1 ml/min Est GFR ( Amer) 61.9 Est GFR (Non-Af Amer) 53.4 BUN/Creatinine Ratio 18.3 (10-20) Glucose 136 H (70-99) mg/dl POC Glucose 132 H (70-99) Calcium 8.2 L (8.5-10.1) mg/dl Hepatitis C Ab Screen (Neg) 12/13/18 12/12/18 12/12/18 Range/Units 05:58 20:30 17:19 WBC (4.8-10.8) K/uL RBC (4.2-5.4) M/uL Hgb (12.0-16.0) g/dL Hct (37-47) % MCV (80-100) fL MCH (25-34) pg MCHC (32-36) g/dL RDW Std Deviation (36.4-46.3) fL RDW Coeff of Caleb (11.5-14.5) % Plt Count (130-400) K/uL MPV (7.4-10.4) fL Sodium (136-145) mmol/L Potassium (3.5-5.1) mmol/L Chloride (98-107) mmol/L Carbon Dioxide (21-32) mmol/L Anion Gap (3-11) BUN (7-18) mg/dl Creatinine (0.6-1.2) mg/dl Est Cr Clr Drug Dosing ml/min Est GFR ( Amer) Est GFR (Non-Af Amer) BUN/Creatinine Ratio (10-20) Glucose (70-99) mg/dl POC Glucose 116 H 111 H (70-99) Calcium (8.5-10.1) mg/dl Hepatitis C Ab Screen Neg (Neg) 12/12/18 12/12/18 Range/Units 12:48 11:17 WBC (4.8-10.8) K/uL RBC (4.2-5.4) M/uL Hgb (12.0-16.0) g/dL Hct (37-47) % MCV (80-100) fL MCH (25-34) pg MCHC (32-36) g/dL RDW Std Deviation (36.4-46.3) fL RDW Coeff of Caleb (11.5-14.5) % Plt Count (130-400) K/uL MPV (7.4-10.4) fL Sodium (136-145) mmol/L Potassium (3.5-5.1) mmol/L Chloride (98-107) mmol/L Carbon Dioxide (21-32) mmol/L Anion Gap (3-11) BUN (7-18) mg/dl Creatinine (0.6-1.2) mg/dl Est Cr Clr Drug Dosing ml/min Est GFR ( Amer) Est GFR (Non-Af Amer) BUN/Creatinine Ratio (10-20) Glucose (70-99) mg/dl POC Glucose 99 110 H (70-99) Calcium (8.5-10.1) mg/dl Hepatitis C Ab Screen (Neg)
--- NOTE | 2018-12-13 11:39 | Pharmacy Report ---
Pharmacy Glycemic Short Note 2 - Date of Service December 13, 2018 - Glycemic Short BSG Results (Last 24 hours): 12/12/18 12/12/18 12/12/18 12:48 17:19 20:30 Glucose POC Glucose 99 111 H 116 H 12/13/18 12/13/18 05:58 08:09 Glucose 136 H POC Glucose 132 H OUTPATIENT ANTIDIABETIC REGIMEN: * Metformin 500 mg BID * A1c = 6.6 % 11/13/18 ASSESSMENT: * 72yo T2DM with well controlled diabetes as an outpatient on metformin * Metformin on hold for admission post op- utilizing Sq basal (CF+CR) monotherapy. Holding off on basal insulin based on no BSGs >140 * Pt received PO dxm this morning. Expect BSGs to increase. CF+CR empirically tightened. * Effects of PO dxm likely to diminish around HS. Decrease in bolus insulin warranted for HS based on A1c - even if pt yperglycemic at HS endogenous insulin will likely correct it from HS to AM. PLAN FOR INPATIENT GLYCEMIC CONTROL: * Hold outpatient oral diabetes medications * Basal insulin * not indicated * Bolus insulin * NovoLog per scale today for BREAKFAST, LUNCH, AND DINNER * Goal Range: Low 100 mg/dL - High 140 mg/dL * Correction Factor: 25 mg/dL/unit * Nutritional / Prandial insulin per carb ratio of 1 unit per 8 grams CHO consumed * * * Then, DECREASE NovoLog per scale starting at HS * Goal Range: Low 100 mg/dL - High 140 mg/dL * Correction Factor: 40 mg/dL/unit * Nutritional / Prandial insulin per carb ratio of 1 unit per -- grams CHO consumed PLAN FOR DISCHARGE: * Resume Metformin
--- NOTE | 2018-12-13 13:29 | Discharge Summary ---
Date of Service December 13, 2018 Discharge Data Consultations 12/12/18 12:27 Consult Case Management - Discharge Planning Routine Procedures Performed Operation Date: 12/12/18 08:20 Actual Procedures p Right Total Knee Arthroplasty(Right) - Darinel Salinas MD Hospital Course (1) S/P total knee arthroplasty: Patient was admitted to [facility] after undergoing an elective right total knee arthroplasty by Dr. Salinas on December 12, 2018.Her surgery was for formal spinal anesthesia with peripheral nerve block. She tolerated the procedure well without any intraoperative or postoperative complications. She was given 2 g of IV Ancef for surgical prophylaxis and this was continued for 24 hours after surgery. She was allowed out of bed, weightbearing as tolerated with the assistance of a walker. Postoperative x- rays showed a stable prosthesis in neutral alignment. She was given a regular diet. Glycemic control consult was placed for management of her well- controlled type 2 diabetes. Pain medication was prescribed for postoperative pain control and included oral Tylenol, oxycodone, tramadol, IV Dilaudid, IV Toradol; all as needed. Her pain was well controlled after surgery with pain medications. Physical therapy and occupational therapy was consult to discharge on postoperative day one. Bedside exercises were provided which she was very diligent about doing. She tolerated a regular diet during her inpatient stay. She did not develop any postoperative chest pain, shortness of breath, fevers or elevated blood pressure. Her vitals remained stable. She was started on Lovenox 30 mg twice a day for DVT prophylaxis. This will be continued for approximately 2 weeks after surgery. She was also given AV impulse boots and DARLING stockings for DVT prophylaxis. She was seen and evaluated by case management for disposition needs. She was extremely safe incompetent and physical therapy and occupational therapy. She wanted to go home with outpatient physical therapy. She was deemed safe to do this and was discharged to her home in stable condition with her on December 13, 2018. (2) Acute blood loss anemia: Neuro monitor. Asymptomatic. No need for blood transfusion. Repeat CBC on December 18, 2018.
[2018-12-13 14:23] VITALS: PULSE 81
[2018-12-13] MEDS ORDERED: PREMARIN VAG CRM 14 APPLN/30 GM TUBE PV SCH (21:00)
[2018-12-13] MEDS ORDERED: CeleBREX 200 MG CAP PO SCH (21:00)
[2018-12-13] MEDS ORDERED: INSULIN ASPART 100 UNITS/ML 3 ML PEN SC SCH (21:00)
[2018-12-14] MEDS ORDERED: METFORMIN HCL 500 MG TAB PO SCH (08:00)
== END 2018-12-13 15:45 | disposition home or self-care (01) | DRG 470 ==
LOC: ASU 06:03 → 3E 11:21